=== PATIENT | male | born 1960 | race Caucasian/White ===

== ENCOUNTER 2019-07-13 12:43 | Inpatient (IN) | payer BC ==
--- NOTE | 2019-07-13 15:16 | HP ---
COWS - Scale Resting Pulse: 1= [place] 81-100 Sweatin= No chills or Flushing Restless Observation: 0= Sits Still Pupil Size: 0= Normal to Room Light Bone or Joint Aches: 1= Mild Discomfort Runny Nose/ Eye Tearin= None GI Upset > 30mins: 0= None Tremor Observation: 0= None Yawning Observation: 0= None Anxiety or Irritability: 0= None Goose Flesh Skin: 0=Smooth Skin (low COWS because just used) COWS Score: 2 CIWA Score - Admission Criteria OASAS Guidelines: Admission for Medically Managed Detox: Requires at least one of the followin. CIWA greater than 12 2. Seizures within the past 24 hours 3. Delirium tremens within the past 24 hours 4. Hallucinations within the past 24 hours 5. Acute intervention needed for co occurring medical disorder 6. Acute intervention needed for co occurring psychiatric disorder 7. Severe withdrawal that cannot be handled at a lower level of care (continued vomiting, continued diarrhea, abnormal vital signs) requiring intravenous medication and/or fluids 8. Admitting History and Physical - Admission Chief Complaint: Mr. Velasquez presents to [facility] for detox from heroin. He states he wants to "stop using because I have a beautiful family and house" History of Present Illness: Mr. Velasquez presents to [facility] for detox from heroin. He has never been admitted to [facility]. He underwent detox in 1989 at [facility]. His longes period of abstinence was [id number]. He was in a methadone program, [facility], most recent in a program on [address] in the [place]. PMH: HTN, HL PSH: none Psych: none Substance Use History: Heroin: first use: age 37 y, last use today, 4-5 bags per day. No history of overdoses. sniff, no IV. Buys street methadone cocaine: first use age 37 yo, last use today, $20./day Nicotine: first use age 13 y, last use today, 1/2 ppd Denies: alcohol, benzodiazepines History Source: Patient Limitations to Obtaining History: No Limitations - Past Medical History Psych: Yes: Addictions Admission ROS S - HPI Chief Complaint: Mr. Velasquez presents requesing admission for detox from heroin. Allergies/Adverse Reactions: Allergies Allergy/AdvReac Type Severity Reaction Status Date / Time No Known Allergies Allergy Verified 07/13/19 15:04 Exam Limitations: No Limitations - Ebola screening Have you traveled outside of the country in the last 21 days: No Have you had contact with anyone from an Ebola affected area: No Have you been sick,other than usual withdrawal symptoms: No Do you have a fever: No Patient History - Substances abused Cocaine Other (specify): Sniff Amount used: S20 Age of first use: 37 Date of last use: 07/13/19 Heroin Substance route: Inhalation Frequency: Daily Amount used: 4-5 bags Age of first use: 37 Date of last use: 07/13/19
[2019-07-13 15:51] VITALS: BMI 28.6
--- NOTE | 2019-07-13 19:32 | HP ---
COWS - Scale Resting Pulse: 1= [place] 81-100 Sweatin= Beads of Sweat on Face Restless Observation: 1= Difficult to Sit Still Pupil Size: 0= Normal to Room Light Bone or Joint Aches: 4=Acute Joint/Muscle Pain Runny Nose/ Eye Tearin= Nasal Congestion GI Upset > 30mins: 1= Stomach Cramp Tremor Observation: 0= None Yawning Observation: 2= >3x During Session Anxiety or Irritability: 1=Feels Anxious/Irritable Goose Flesh Skin: 3=Piloerection COWS Score: 17 CIWA Score - Admission Criteria OASAS Guidelines: Admission for Medically Managed Detox: Requires at least one of the followin. CIWA greater than 12 2. Seizures within the past 24 hours 3. Delirium tremens within the past 24 hours 4. Hallucinations within the past 24 hours 5. Acute intervention needed for co occurring medical disorder 6. Acute intervention needed for co occurring psychiatric disorder 7. Severe withdrawal that cannot be handled at a lower level of care (continued vomiting, continued diarrhea, abnormal vital signs) requiring intravenous medication and/or fluids 8. Admitting History and Physical - Smoking History Smoking history: Current every day smoker Have you smoked in the past 12 months: Yes Aproximately how many cigarettes per day: 10 Admission ROS [facility] Chief Complaint: seeking heroin detox Allergies/Adverse Reactions: Allergies Allergy/AdvReac Type Severity Reaction Status Date / Time No Known Allergies Allergy Verified 07/13/19 15:04 History of Present Illness: HERE FOR HEROIN DETOX. CLIENT IS SELF REFERRED. PRESENTS WITH COMPLAINTS OF WITHDRAWAL SX'S. REPORTS DAILY USE OF HEROIN. LAST USE EARLIER TODAY. DENIES, IVDU, DRUG OVERDOSE, AVH. HE ALSO ABUSES COCAINE. UTOX + MTD, HUBER, OPI, FENTANYL . CLIENT REPORTS STREET METHADONE TO SUPPLEMENT WHEN HE DOESN'T HAVE HEROIN. DENIES ANY SIGNIFICANT PERIOD OF CLEAN TIME IN THE PAST 1 YEAR. LIVES WITH , UNEMPLOYED, DENIES LEGALS. Exam Limitations: No Limitations - Ebola screening Have you traveled outside of the country in the last 21 days: No Have you had contact with anyone from an Ebola affected area: No Have you been sick,other than usual withdrawal symptoms: No Do you have a fever: No - Review of Systems Constitutional: Chills, Malaise, Night Sweats EENT: reports: Nose Congestion, Other (WATERY EYES) Respiratory: reports: Shortness of Breath (R/T ASTHMA/ INTERMITTENT), Other (HX/ O +PPD IN 1994 [place] TREAATED) Cardiac: reports: No Symptoms Reported GI: reports: Nausea, Abdominal cramping : reports: No Symptoms Reported Musculoskeletal: reports: Back Pain, Neck Pain Integumentary: reports: Sweating Neuro: reports: No Symptoms reported Endocrine: reports: No Symptoms Reported Hematology: reports: Anemia Psychiatric: reports: Agitated (IRRITABLE), Anxious, Depressed (DENIES SI) Other Systems: Reviewed and Negative Patient History - Patient Medical History Hx Anemia: No Hx Asthma: Yes Hx Chronic Obstructive Pulmonary Disease (COPD): No Hx Cancer: No Hx Cardiac Disorders: No Hx Congestive Heart Failure: No Hx Hypertension: Yes Hx Hypercholesterolemia: Yes Hx Pacemaker: No HX Cerebrovascular Accident: No Hx Seizures: No Hx Dementia: No Hx Diabetes: No Hx Gastrointestinal Disorders: Yes (HX/O GERD) Hx Liver Disease: No Hx Genitourinary Disorders: No Hx Sexually Transmitted Disorders: No Hx Renal Disease (ESRD): No Hx Thyroid Disease: No Hx Human Immunodeficiency Virus (HIV): No Hx Hepatitis C: No Hx Depression: Yes (NO MEDS) Hx Suicide Attempt: No Hx Bipolar Disorder: No Hx Schizophrenia: No Other Medical History: DENIES - Patient Surgical History Past Surgical History: No Hx Neurologic Surgery: No Hx Cataract Extraction: No Hx Cardiac Surgery: No Hx Lung Surgery: No Hx Breast Surgery: No Hx Breast Biopsy: No Hx Abdominal Surgery: No Hx Appendectomy: No Hx Cholecystectomy: No Hx Genitourinary Surgery: No Hx Section: No Hx Orthopedic Surgery: No Anesthesia Reaction: No - PPD History Previous Implant?: No Documented Results: Positive w/o proof Implanted On Prior R Admission?: No PPD to be Administered?: No - Smoking Cessation Smoking history: Current every day smoker Have you smoked in the past 12 months: Yes Aproximately how many cigarettes per day: 10 Cigars Per Day: 0 Hx Chewing Tobacco Use: No Initiated information on smoking cessation: Yes 'Breaking Loose' booklet given: 07/13/19 - Substance & Tx. History Hx Alcohol Use: Yes Hx Substance Use: Yes Substance Use Type: Cocaine, Heroin Hx Substance Use Treatment: Yes ([facility]) - Substances abused Cocaine Substance route: Inhalation Frequency: Daily Amount used: 20 DOLLARS Age of first use: 37 Date of last use: 07/13/19 Heroin Substance route: Inhalation Frequency: Daily Amount used: 10 BAGS Age of first use: 37 Date of last use: 07/13/19 (5 BAGS) Admission Physical Exam [facility] - Vital Signs Vital Signs: Vital Signs - 24 hr 07/13/19 07/13/19 15:03 16:49 Temperature 97.6 F 97.6 F Pulse Rate 91 H 91 H Respiratory 16 16 Rate Blood Pressure 137/83 137/83 - Diagnostic (1) Opioid dependence with withdrawal Current Visit: Yes Status: Acute (2) Cocaine dependence, uncomplicated Current Visit: Yes Status: Chronic (3) HTN (hypertension) Current Visit: Yes Status: Chronic Qualifiers: Hypertension type: essential hypertension Qualified Code(s): I10 - Essential (primary) hypertension (4) HLD (hyperlipidemia) Current Visit: Yes Status: Chronic (5) Asthma Current Visit: Yes Status: Chronic Qualifiers: Asthma severity: mild Asthma persistence: intermittent Asthma complication type: uncomplicated Qualified Code(s): J45.20 - Mild intermittent asthma, uncomplicated (6) Substance induced mood disorder Current Visit: Yes Status: Suspected (7) Nicotine dependence Current Visit: Yes Status: Acute Qualifiers: Nicotine product type: cigarettes Substance use status: uncomplicated Qualified Code(s): F17.210 - Nicotine dependence, cigarettes, uncomplicated (8) History of positive PPD Current Visit: Yes Status: Chronic Cleared for Admission [facility] - Detox or Rehab [facility] Level of Care: Medically Managed Detox Regimen/Protocol: Methadone Claeared for Rehab Admission: No Breathalyzer - Breathalyzer Breathalyzer: 0 Urine Drug Screen - Test Device Lot number: [id number] Expiration date: 05/03/21 - Control Is test valid?: Yes - Results Drug screen NEGATIVE: No Urine drug screen results: THC-Marijuana, HUBER-Cocaine, FEN-Fentanyl, MOP-Opiates Inpatient Rehab Admission - Rehab Decision to Admit Inpatient rehab admission?: No
[2019-07-13] MEDS ORDERED: BISMUTH SUBSALICYLATE 524 MG/30 ML UD PO PRN (19:39)
[2019-07-13] MEDS ORDERED: DICYCLOMINE HCL 10 MG CAPSULE PO PRN (19:39)
[2019-07-13] MEDS ORDERED: cloNIDine HCL 0.1 MG TABLET PO PRN (19:39)
[2019-07-13] MEDS ORDERED: P-EPHED 60MG/TRIPROLIDI 2.5MG TABLET PO PRN (19:39)
[2019-07-13] MEDS ORDERED: MAG HYDROX/AL HYDROX/SIMETH 30 ML UNIT-DOSE CUP PO PRN (19:39)
[2019-07-13] MEDS ORDERED: ONDANSETRON *ODT* 4 MG TABLET SL PRN (19:39)
[2019-07-13] MEDS ORDERED: NICOTINE POLACRILEX 2 MG GUM BUC PRN (19:39)
[2019-07-13] MEDS ORDERED: MENTHOL/PHENOL 1 EACH UD MM PRN (19:39)
[2019-07-13] MEDS ORDERED: MAGNESIUM HYDROX 2400MG/30ML ORAL SUSPENSION 30 ML CUP PO PRN (19:39)
[2019-07-13] MEDS ORDERED: ACETAMINOPHEN 325 MG TABLET (FP) PO PRN ×2 (19:39)
[2019-07-13] MEDS ORDERED: MAGNESIUM CITRATE 300 ML BOTTLE PO PRN (19:39)
[2019-07-13] MEDS ORDERED: IBUPROFEN 400 MG TABLET (FP) PO PRN (19:39)
[2019-07-13] MEDS ORDERED: guaiFENesin 200 MG/10 ML 10 ML UNIT-DOSE CUPS PO PRN (19:39)
[2019-07-13] MEDS ORDERED: METHADONE HCL 10 MG TABLET (FOR DETOX USE ONLY) PO ONE (20:45)
--- NOTE | 2019-07-13 20:52 | PN ---
BHS Progress Note Note: ABNORMAL EKG: SINUS CARYL 59 BPM BIATRIAL ENLARGEMENT LVH ST/T WAVE ABN, CONSIDER INFEROLATERAL ISCHEMIA PROLONGED QT 530/524 Vital Signs Temperature 97.6 F 07/13/19 16:49 Pulse Rate 91 H 07/13/19 16:49 Respiratory Rate 16 07/13/19 16:49 Blood Pressure 137/83 07/13/19 16:49 O2 Sat by Pulse Oximetry (%) CLIENT DENIES ANY CARDIAC SX''S TO INCLUDE SOB, C.P PMHX OF HTN, COCAINE ABUSE. P- REPEAT EKG CONT TO MONITOR CLINICALLY
[2019-07-13] MEDS: THIAMINE HCL 100 MG TABLET (FP) PO SCH (21:59)
[2019-07-13] MEDS ORDERED: ALBUTEROL SO4 HFA INHALER IH PRN (22:00)
[2019-07-13] MEDS: MELATONIN 5 MG TABLETS PO PRN (22:00)
[2019-07-14] MEDS ORDERED: METHADONE HCL 5 MG TABLET (FOR DETOX USE ONLY) ONE (09:25)
[2019-07-14] MEDS ORDERED: METHADONE HCL 10 MG TABLET (FOR DETOX USE ONLY) ONE (09:25)
[2019-07-14] MEDS ORDERED: METHADONE (DETOX) 20 MG, METHADONE (DETOX) 5 MG PO ONE (10:00)
[2019-07-14 10:06] LABS: HEMOGLOBIN 12.5 GM/dL (11.7-16.9); MCH 30.5 pg (25.7-33.7); MCHC 33.7 g/dl (32.0-35.9); MEAN CELL VOLUME 90.6 fl (80-96); MEAN PLT VOLUME 10.5 fl (7.5-11.1); PLATELET COUNT 161 K/MM3 (134-434); RBC 4.09 M/mm3 (4.00-5.60); RDW 14.3 % (11.9-15.9); WHITE BLOOD COUNT 7.5 K/mm3 (4.0-10.0)
[2019-07-14] MEDS: ASPIRIN 81 MG CHEWABLE TABLETS PO SCH (10:16)
[2019-07-14] MEDS: NICOTINE 14 MG/24 HOURS TOPICAL PATCH TD SCH (10:16)
[2019-07-14] MEDS: PRENATAL VITAMINS W/ FOLIC ACID TABLET (FP) PO SCH (10:16)
[2019-07-14] MEDS: hydrOXYzine PAMOATE 25 MG CAPSULE (FP) PO PRN (10:16)
[2019-07-14] MEDS: amLODIPine BESYLATE 10 MG TABLET (FP) PO SCH (10:16)
[2019-07-14 10:21] LABS: ALBUMIN 3.4 g/dl (3.4-5.0); ALK PHOS 74 U/L (45-117); ANION GAP 5 MMOL/L (8-16); BILIRUBIN,TOTAL 0.5 mg/dL (0.2-1); BLOOD UREA NITROGEN 18.2 mg/dL (7-18); CHLORIDE 106 mmol/L (98-107); CO2 29 mmol/L (21-32); CREATININE 0.9 mg/dL (0.55-1.3); GLUCOSE,RANDOM 110 mg/dL (74-106); SGOT/AST 14 U/L (15-37); SGPT/ALT 20 U/L (13-61); SODIUM 140 mmol/L (136-145); TOT PROT 7.2 g/dl (6.4-8.2)
--- NOTE | 2019-07-14 11:19 | PN ---
BHS COWS - Scale Resting Pulse: 0= [place] 80 or Below Sweatin= No chills or Flushing Restless Observation: 0= Sits Still Pupil Size: 1= Pupils >than Normal Bone or Joint Aches: 1= Mild Discomfort Runny Nose/ Eye Tearin= Nasal Congestion GI Upset > 30mins: 1= Stomach Cramp Tremor Observation of Outstretched Hands: 2= Slight Tremor Visible Yawning Observation: 1= 1-2x During Session Anxiety or Irritability: 2=Irritable/Anxious Goose Flesh Skin: 3=Piloerection COWS Score: 12 BHS Progress Note (SOAP) Subjective: 59 years old male admitted on 07/13/19 for opiate withdrawal sx management treating with methadone detox regiment report hypertension x 2-3 years seeing primary care "when the medication ran out " had stress test 2018 "doctor said things are ok" patient determines to stop smoking "the doctor keep telling me about" patient denies chest pain no shortness of breath denies dizziness alert oriented x 3 CN II-XII within normal range patient was in methadone program "3-4" years ago as well as short time in suboxone program patient is aware of the cardiac issue related to 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 Objective: 07/14/19 11:36 Vital Signs Temperature 97 F L 07/14/19 08:34 Pulse Rate 56 L 07/14/19 08:34 Respiratory Rate 20 07/14/19 08:34 Blood Pressure 115/79 07/14/19 08:34 O2 Sat by Pulse Oximetry (%) Laboratory Last Values WBC 7.5 K/mm3 (4.0-10.0) 07/14/19 06:00 RBC 4.09 M/mm3 (4.00-5.60) 07/14/19 06:00 Hgb 12.5 GM/dL (11.7-16.9) 07/14/19 06:00 Hct 37.0 % (35.4-49) 07/14/19 06:00 MCV 90.6 fl (80-96) 07/14/19 06:00 MCH 30.5 pg (25.7-33.7) 07/14/19 06:00 MCHC 33.7 g/dl (32.0-35.9) 07/14/19 06:00 RDW 14.3 % (11.9-15.9) 07/14/19 06:00 Plt Count 161 K/MM3 (134-434) 07/14/19 06:00 MPV 10.5 fl (7.5-11.1) 07/14/19 06:00 Sodium 140 mmol/L (136-145) 07/14/19 06:00 Potassium 4.0 mmol/L (3.5-5.1) 07/14/19 06:00 Chloride 106 mmol/L (98-107) 07/14/19 06:00 Carbon Dioxide 29 mmol/L (21-32) 07/14/19 06:00 Anion Gap 5 MMOL/L (8-16) L 07/14/19 06:00 BUN 18.2 mg/dL (7-18) H 07/14/19 06:00 Creatinine 0.9 mg/dL (0.55-1.3) 07/14/19 06:00 Est GFR (CKD-EPI)AfAm 107.22 07/14/19 06:00 Est GFR (CKD-EPI)NonAf 92.51 07/14/19 06:00 Random Glucose 110 mg/dL (74-106) H 07/14/19 06:00 Calcium 9.0 mg/dL (8.5-10.1) 07/14/19 06:00 Total Bilirubin 0.5 mg/dL (0.2-1) 07/14/19 06:00 AST 14 U/L (15-37) L 07/14/19 06:00 ALT 20 U/L (13-61) 07/14/19 06:00 Alkaline Phosphatase 74 U/L (45-117) 07/14/19 06:00 Total Protein 7.2 g/dl (6.4-8.2) 07/14/19 06:00 Albumin 3.4 g/dl (3.4-5.0) 07/14/19 06:00 lab noted Assessment: 07/14/19 11:37 opiate withdrawal Plan: methadone regiment
--- NOTE | 2019-07-14 11:41 | EKG ---
Test Reason : Blood Pressure : / mmHG Vent. Rate : 059 BPM Atrial Rate : 059 BPM P-R Int : 144 ms QRS Dur : 108 ms QT Int : 530 ms P-R-T Axes : 066 -25 -63 degrees QTc Int : 524 ms SINUS BRADYCARDIA BIATRIAL ENLARGEMENT LEFT VENTRICULAR HYPERTROPHY PROLONGED QT ABNORMAL ECG NO PREVIOUS ECGS AVAILABLE Confirmed by Michel Rice MD ([id number]) on 07/14/2019 11:41:01 AM Referred By: KRISTAN Confirmed By:Michel Rice MD
--- NOTE | 2019-07-14 11:41 | EKG ---
Test Reason : Blood Pressure : / mmHG Vent. Rate : 078 BPM Atrial Rate : 078 BPM P-R Int : 154 ms QRS Dur : 106 ms QT Int : 474 ms P-R-T Axes : 067 -21 -44 degrees QTc Int : 540 ms NORMAL SINUS RHYTHM POSSIBLE LEFT ATRIAL ENLARGEMENT LEFT VENTRICULAR HYPERTROPHY NONSPECIFIC T WAVE ABNORMALITY PROLONGED QT ABNORMAL ECG WHEN COMPARED WITH ECG OF 13-JUL-2019 20:12, T WAVE INVERSION LESS EVIDENT IN INFERIOR LEADS NONSPECIFIC T WAVE ABNORMALITY HAS REPLACED INVERTED T WAVES IN ANTEROLATERAL LEADS Confirmed by Michel Rice MD ([id number]) on 07/14/2019 11:40:42 AM Referred By: Confirmed By:Michel Rice MD
--- NOTE | 2019-07-14 12:47 | CONSULT ---
[facility] Psychiatric Consult - Data Date of interview: 07/14/19 Admission source: [facility] Identifying data: First visit at [facility] and admission to [address] [place] [address] for this 59 y/o male self-referred for detoxification treatment. DEEJAY issues : heroin, cocaine, nicotine. patient is , father of four, domiciled, unemployed and deprived of income. Substance Abuse History: Discusssed with patient in this session. Details in current [facility] report as follows : Smoking history: Current every day smoker. Have you smoked in the past 12 months: Yes. Aproximately how many cigarettes per day: 10. Cigars Per Day: 0. Hx Chewing Tobacco Use: No. Initiated information on smoking cessation: Yes. 'Breaking Loose' booklet given: . - Substance & Tx. History. Hx Alcohol Use: Yes. Hx Substance Use: Yes. Substance Use Type: Cocaine, Heroin. Hx Substance Use Treatment: Yes ([facility]). - Substances abused. Cocaine. Substance route: Inhalation. Frequency: Daily. Amount used: 20 DOLLARS. Age of first use: 37. Date of last use: 07/13. Heroin. Substance route: Inhalation. Frequency: Daily. Amount used: 10 BAGS. Age of first use: 37. Date of last use: 07/13/19 (5 BAGS) Medical History: Medical profile is remarkable for GERD, hypertension, bronchial asthma, dyslipidemia and chronic lumbar pain. No known allergies. Psychiatric History: Patient denies history of psychiatric hospitalizations, OPD care or suicide attempts. Physical/Sexual Abuse/Trauma History: Patient denies. Additional Comment: Urine drug screen results: THC-Marijuana, HUBER-Cocaine, FEN- Fentanyl, MOP-Opiates. Noted. Mental Status Exam - Mental Status Exam Alert and Oriented to: Time, Place, Person Cognitive Function: Good Patient Appearance: Unkempt, Disheveled Mood: Withdrawn Affect: Mood Congruent, Constricted Patient Behavior: Fatigued, Appropriate, Cooperative Speech Pattern: Clear, Appropriate Voice Loudness: Normal Thought Process: Intact, Goal Oriented Thought Disorder: Not Present Hallucinations: Denies Suicidal Ideation: Denies Homicidal Ideation: Denies Insight/Judgement: Poor Sleep: Well Appetite: Good Gait/Station: Normal Psychiatric Findings - Problem List ([place] 1, 2,3) (1) Opioid dependence with withdrawal Current Visit: Yes Status: Acute (2) Cocaine dependence, uncomplicated Current Visit: Yes Status: Chronic (3) Nicotine dependence Current Visit: Yes Status: Chronic Qualifiers: Nicotine product type: cigarettes Substance use status: uncomplicated Qualified Code(s): F17.210 - Nicotine dependence, cigarettes, uncomplicated (4) Substance induced mood disorder Current Visit: Yes Status: Chronic - Initial Treatment Plan Initial Treatment Plan: Psychoeducation. Sleep hygiene. Detoxification. Support. MAT services discussed with the patient. NA meetings. Observation.
[2019-07-14 18:21] LABS: URINE APPEARANCE CLOUDY; URINE BILIRUBIN NEGATIVE (NEGATIVE); URINE COLOR YELLOW; URINE GLUCOSE (UA) NEGATIVE (NEGATIVE); URINE KETONE NEGATIVE (NEGATIVE); URINE LEUK ESTERASE NEGATIVE (NEGATIVE); URINE NITRITE NEGATIVE (NEGATIVE); URINE PROTEIN NEGATIVE (NEGATIVE); URINE UROBILINOGEN 0.2 mg/dL (0.2-1.0)
[2019-07-14] MEDS: MELATONIN 5 MG TABLETS PO PRN (22:30)
[2019-07-14] MEDS: THIAMINE HCL 100 MG TABLET (FP) PO SCH (22:30)
[2019-07-15] MEDS ORDERED: METHADONE HCL 10 MG TABLET (FOR DETOX USE ONLY) PO ONE (10:00)
[2019-07-15] MEDS: NICOTINE 14 MG/24 HOURS TOPICAL PATCH TD SCH (10:18)
[2019-07-15] MEDS: amLODIPine BESYLATE 10 MG TABLET (FP) PO SCH (10:18)
[2019-07-15] MEDS: hydrOXYzine PAMOATE 25 MG CAPSULE (FP) PO PRN ×2 (10:18→17:49)
[2019-07-15] MEDS: ASPIRIN 81 MG CHEWABLE TABLETS PO SCH (10:18)
[2019-07-15] MEDS: PRENATAL VITAMINS W/ FOLIC ACID TABLET (FP) PO SCH (10:18)
[2019-07-15] MEDS: METHOCARBAMOL 500 MG TABLET PO PRN (10:18)
--- NOTE | 2019-07-15 13:17 | PN ---
S COWS - Scale Resting Pulse: 0= [place] 80 or Below Sweatin= Chills/Flushing Restless Observation: 0= Sits Still Pupil Size: 1= Pupils >than Normal Bone or Joint Aches: 1= Mild Discomfort Runny Nose/ Eye Tearin= Nasal Congestion GI Upset > 30mins: 1= Stomach Cramp Tremor Observation of Outstretched Hands: 2= Slight Tremor Visible Yawning Observation: 1= 1-2x During Session Anxiety or Irritability: 2=Irritable/Anxious Goose Flesh Skin: 0=Smooth Skin COWS Score: 10 S Progress Note (SOAP) Subjective: 59 years old male admitted on 07/13/19 for opiate withdrawal sx management treating [facility] methadone detox regiment feeling ok today ate breakfast in day room social with peers attends behavior and psychosocial therapies groups and meetings Objective: 07/15/19 13:17 Vital Signs Temperature 98.7 F 07/15/19 08:47 Pulse Rate 71 07/15/19 08:47 Respiratory Rate 18 07/15/19 08:47 Blood Pressure 128/77 07/15/19 08:47 O2 Sat by Pulse Oximetry (%) Laboratory Last Values WBC 7.5 K/mm3 (4.0-10.0) 07/14/19 06:00 RBC 4.09 M/mm3 (4.00-5.60) 07/14/19 06:00 Hgb 12.5 GM/dL (11.7-16.9) 07/14/19 06:00 Hct 37.0 % (35.4-49) 07/14/19 06:00 MCV 90.6 fl (80-96) 07/14/19 06:00 MCH 30.5 pg (25.7-33.7) 07/14/19 06:00 MCHC 33.7 g/dl (32.0-35.9) 07/14/19 06:00 RDW 14.3 % (11.9-15.9) 07/14/19 06:00 Plt Count 161 K/MM3 (134-434) 07/14/19 06:00 MPV 10.5 fl (7.5-11.1) 07/14/19 06:00 Sodium 140 mmol/L (136-145) 07/14/19 06:00 Potassium 4.0 mmol/L (3.5-5.1) 07/14/19 06:00 Chloride 106 mmol/L (98-107) 07/14/19 06:00 Carbon Dioxide 29 mmol/L (21-32) 07/14/19 06:00 Anion Gap 5 MMOL/L (8-16) L 07/14/19 06:00 BUN 18.2 mg/dL (7-18) H 07/14/19 06:00 Creatinine 0.9 mg/dL (0.55-1.3) 07/14/19 06:00 Est GFR (CKD-EPI)AfAm 107.22 07/14/19 06:00 Est GFR (CKD-EPI)NonAf 92.51 07/14/19 06:00 Random Glucose 110 mg/dL (74-106) H 07/14/19 06:00 Calcium 9.0 mg/dL (8.5-10.1) 07/14/19 06:00 Total Bilirubin 0.5 mg/dL (0.2-1) 07/14/19 06:00 AST 14 U/L (15-37) L 07/14/19 06:00 ALT 20 U/L (13-61) 07/14/19 06:00 Alkaline Phosphatase 74 U/L (45-117) 07/14/19 06:00 Creatine Kinase 100 U/L (26-308) 07/14/19 06:00 Troponin I < 0.02 ng/ml (0.00-0.05) 07/14/19 06:00 Total Protein 7.2 g/dl (6.4-8.2) 07/14/19 06:00 Albumin 3.4 g/dl (3.4-5.0) 07/14/19 06:00 Urine Color Yellow 07/14/19 12:40 Urine Appearance Cloudy 07/14/19 12:40 Urine pH 8.0 (5.0-8.0) 07/14/19 12:40 Ur Specific [place] 1.018 (1.010-1.035) 07/14/19 12:40 Urine Protein Negative (NEGATIVE) 07/14/19 12:40 Urine Glucose (UA) Negative (NEGATIVE) 07/14/19 12:40 Urine Ketones Negative (NEGATIVE) 07/14/19 12:40 Urine Blood Negative (NEGATIVE) 07/14/19 12:40 Urine Nitrite Negative (NEGATIVE) 07/14/19 12:40 Urine Bilirubin Negative (NEGATIVE) 07/14/19 12:40 Urine Urobilinogen 0.2 mg/dL (0.2-1.0) 07/14/19 12:40 Ur Leukocyte Esterase Negative (NEGATIVE) 07/14/19 12:40 RPR Titer Nonreactive (NONREACTIVE) 07/14/19 06:00 lab noted Assessment: 07/15/19 13:17 opiate withdrawal Plan: methadone regiment
[2019-07-15] MEDS: THIAMINE HCL 100 MG TABLET (FP) PO SCH (22:10)
[2019-07-15] MEDS: MELATONIN 5 MG TABLETS PO PRN (22:11)
[2019-07-16] MEDS ORDERED: METHADONE HCL 5 MG TABLET (FOR DETOX USE ONLY) ONE (09:44)
[2019-07-16] MEDS ORDERED: METHADONE HCL 10 MG TABLET (FOR DETOX USE ONLY) ONE (09:44)
[2019-07-16] MEDS ORDERED: METHADONE (DETOX) 10 MG, METHADONE (DETOX) 5 MG PO ONE (10:00)
[2019-07-16] MEDS: METHOCARBAMOL 500 MG TABLET PO PRN (10:08)
[2019-07-16] MEDS: amLODIPine BESYLATE 10 MG TABLET (FP) PO SCH (10:08)
[2019-07-16] MEDS: NICOTINE 14 MG/24 HOURS TOPICAL PATCH TD SCH (10:08)
[2019-07-16] MEDS: ASPIRIN 81 MG CHEWABLE TABLETS PO SCH (10:08)
[2019-07-16] MEDS: PRENATAL VITAMINS W/ FOLIC ACID TABLET (FP) PO SCH (10:10)
--- NOTE | 2019-07-16 11:56 | PN ---
BHS COWS - Scale Resting Pulse: 1= [place] 81-100 Sweatin= No chills or Flushing Restless Observation: 1= Difficult to Sit Still Pupil Size: 1= Pupils >than Normal Bone or Joint Aches: 1= Mild Discomfort Runny Nose/ Eye Tearin= Nasal Congestion GI Upset > 30mins: 1= Stomach Cramp Tremor Observation of Outstretched Hands: 1= Tremor [place], Not Seen Yawning Observation: 1= 1-2x During Session Anxiety or Irritability: 1=Feels Anxious/Irritable Goose Flesh Skin: 0=Smooth Skin COWS Score: 9 BHS Progress Note (SOAP) Subjective: alert,irritable,anxious,interrupted sleep,pain in the body and back Objective: 07/16/19 11:55 Vital Signs Temperature 96.5 F L 07/16/19 08:42 Pulse Rate 87 07/16/19 08:42 Respiratory Rate 18 07/16/19 08:42 Blood Pressure 144/91 07/16/19 08:42 O2 Sat by Pulse Oximetry (%) Assessment: 07/16/19 11:55 withdrawal symptom Plan: continue detox,methadone regimen
--- NOTE | 2019-07-16 12:00 | PN ---
BHS Progress Note Note: no chest pain,no sob,no dizziness
[2019-07-16] MEDS: MELATONIN 5 MG TABLETS PO PRN (22:16)
[2019-07-16] MEDS: THIAMINE HCL 100 MG TABLET (FP) PO SCH (22:16)
[2019-07-17] MEDS: METHOCARBAMOL 500 MG TABLET PO PRN ×2 (04:19→22:18)
[2019-07-17] MEDS ORDERED: METHADONE HCL 10 MG TABLET (FOR DETOX USE ONLY) PO ONE (10:00)
[2019-07-17] MEDS: NICOTINE 14 MG/24 HOURS TOPICAL PATCH TD SCH (10:37)
[2019-07-17] MEDS: ASPIRIN 81 MG CHEWABLE TABLETS PO SCH (10:37)
[2019-07-17] MEDS: PRENATAL VITAMINS W/ FOLIC ACID TABLET (FP) PO SCH (10:38)
[2019-07-17] MEDS: amLODIPine BESYLATE 10 MG TABLET (FP) PO SCH (10:38)
--- NOTE | 2019-07-17 13:43 | PN ---
BHS COWS - Scale Resting Pulse: 0= [place] 80 or Below Sweatin= No chills or Flushing Restless Observation: 0= Sits Still Pupil Size: 0= Normal to Room Light Bone or Joint Aches: 2= Severe Diffuse Aches Runny Nose/ Eye Tearin= None GI Upset > 30mins: 0= None Tremor Observation of Outstretched Hands: 0= None Yawning Observation: 0= None Anxiety or Irritability: 2=Irritable/Anxious Goose Flesh Skin: 0=Smooth Skin COWS Score: 4 BHS Progress Note (SOAP) Subjective: c/o mild withdrawal symptoms. Objective: 07/17/19 13:33 Vital Signs 07/17/19 07/17/19 06:44 09:08 Temperature 97.6 F 96.4 F L Pulse Rate 67 85 Respiratory 18 18 Rate Blood Pressure 119/70 100/68 Laboratory Last Values WBC 7.5 K/mm3 (4.0-10.0) 07/14/19 06:00 RBC 4.09 M/mm3 (4.00-5.60) 07/14/19 06:00 Hgb 12.5 GM/dL (11.7-16.9) 07/14/19 06:00 Hct 37.0 % (35.4-49) 07/14/19 06:00 MCV 90.6 fl (80-96) 07/14/19 06:00 MCH 30.5 pg (25.7-33.7) 07/14/19 06:00 MCHC 33.7 g/dl (32.0-35.9) 07/14/19 06:00 RDW 14.3 % (11.9-15.9) 07/14/19 06:00 Plt Count 161 K/MM3 (134-434) 07/14/19 06:00 MPV 10.5 fl (7.5-11.1) 07/14/19 06:00 Sodium 140 mmol/L (136-145) 07/14/19 06:00 Potassium 4.0 mmol/L (3.5-5.1) 07/14/19 06:00 Chloride 106 mmol/L (98-107) 07/14/19 06:00 Carbon Dioxide 29 mmol/L (21-32) 07/14/19 06:00 Anion Gap 5 MMOL/L (8-16) L 07/14/19 06:00 BUN 18.2 mg/dL (7-18) H 07/14/19 06:00 Creatinine 0.9 mg/dL (0.55-1.3) 07/14/19 06:00 Est GFR (CKD-EPI)AfAm 107.22 07/14/19 06:00 Est GFR (CKD-EPI)NonAf 92.51 07/14/19 06:00 Random Glucose 110 mg/dL (74-106) H 07/14/19 06:00 Calcium 9.0 mg/dL (8.5-10.1) 07/14/19 06:00 Total Bilirubin 0.5 mg/dL (0.2-1) 07/14/19 06:00 AST 14 U/L (15-37) L 07/14/19 06:00 ALT 20 U/L (13-61) 07/14/19 06:00 Alkaline Phosphatase 74 U/L (45-117) 07/14/19 06:00 Creatine Kinase 100 U/L (26-308) 07/14/19 06:00 Troponin I < 0.02 ng/ml (0.00-0.05) 07/14/19 06:00 Total Protein 7.2 g/dl (6.4-8.2) 07/14/19 06:00 Albumin 3.4 g/dl (3.4-5.0) 07/14/19 06:00 Urine Color Yellow 07/14/19 12:40 Urine Appearance Cloudy 07/14/19 12:40 Urine pH 8.0 (5.0-8.0) 07/14/19 12:40 Ur Specific [place] 1.018 (1.010-1.035) 07/14/19 12:40 Urine Protein Negative (NEGATIVE) 07/14/19 12:40 Urine Glucose (UA) Negative (NEGATIVE) 07/14/19 12:40 Urine Ketones Negative (NEGATIVE) 07/14/19 12:40 Urine Blood Negative (NEGATIVE) 07/14/19 12:40 Urine Nitrite Negative (NEGATIVE) 07/14/19 12:40 Urine Bilirubin Negative (NEGATIVE) 07/14/19 12:40 Urine Urobilinogen 0.2 mg/dL (0.2-1.0) 07/14/19 12:40 Ur Leukocyte Esterase Negative (NEGATIVE) 07/14/19 12:40 RPR Titer Nonreactive (NONREACTIVE) 07/14/19 06:00 Labs noted. Assessment: 07/17/19 13:34 AOX3, in no respiratory distress. Full ROM, ambulating in the unit. Withdrawal symptoms. For d/c tomorrow. Plan: continue detox. D/c in AM.
[2019-07-17] MEDS: THIAMINE HCL 100 MG TABLET (FP) PO SCH (22:18)
[2019-07-17] MEDS: MELATONIN 5 MG TABLETS PO PRN (22:18)
[2019-07-18] MEDS ORDERED: METHADONE HCL 5 MG TABLET (FOR DETOX USE ONLY) PO ONE (06:00)
[2019-07-18 07:11] VITALS: BP 106/59; PULSE 70; TEMP 97.4
--- NOTE | 2019-07-18 10:33 | DS ---
[facility] Detox Discharge Summary Admission Date: 07/13/19 Discharge Date: 07/18/19 - History Present History: Opioid Dependence Additional Comments: 59 years old male admitted on 07/13/19 for opiate withdrawal sx management treated with methadone detox regiment patient has completed the methadone regiment and tolerated well seen by psychiatrist no medical intervention necessary at this time alert oriented x 3 speech clearly coherently ambulating steady gait cardiac [id number] regular rate rhythm ekg indicated left atrial enlargement and left ventricular hypertrophic patient is asymptomatic no chest pain no dizziness no shortness of breath respiratory clear lungs bilaterally on auscultation skin warm and dry Pertinent Past History: time for discharge: 35 minutes - Physical Exam Results Vital Signs: Vital Signs Temperature 97.4 F L 07/18/19 07:10 Pulse Rate 70 07/18/19 07:10 Respiratory Rate 18 07/18/19 07:10 Blood Pressure 106/59 L 07/18/19 07:10 O2 Sat by Pulse Oximetry (%) Pertinent Admission Physical Exam Findings: opiate withdrawal Laboratory Last Values WBC 7.5 K/mm3 (4.0-10.0) 07/14/19 06:00 RBC 4.09 M/mm3 (4.00-5.60) 07/14/19 06:00 Hgb 12.5 GM/dL (11.7-16.9) 07/14/19 06:00 Hct 37.0 % (35.4-49) 07/14/19 06:00 MCV 90.6 fl (80-96) 07/14/19 06:00 MCH 30.5 pg (25.7-33.7) 07/14/19 06:00 MCHC 33.7 g/dl (32.0-35.9) 07/14/19 06:00 RDW 14.3 % (11.9-15.9) 07/14/19 06:00 Plt Count 161 K/MM3 (134-434) 07/14/19 06:00 MPV 10.5 fl (7.5-11.1) 07/14/19 06:00 Sodium 140 mmol/L (136-145) 07/14/19 06:00 Potassium 4.0 mmol/L (3.5-5.1) 07/14/19 06:00 Chloride 106 mmol/L (98-107) 07/14/19 06:00 Carbon Dioxide 29 mmol/L (21-32) 07/14/19 06:00 Anion Gap 5 MMOL/L (8-16) L 07/14/19 06:00 BUN 18.2 mg/dL (7-18) H 07/14/19 06:00 Creatinine 0.9 mg/dL (0.55-1.3) 07/14/19 06:00 Est GFR (CKD-EPI)AfAm 107.22 07/14/19 06:00 Est GFR (CKD-EPI)NonAf 92.51 07/14/19 06:00 Random Glucose 110 mg/dL (74-106) H 07/14/19 06:00 Calcium 9.0 mg/dL (8.5-10.1) 07/14/19 06:00 Total Bilirubin 0.5 mg/dL (0.2-1) 07/14/19 06:00 AST 14 U/L (15-37) L 07/14/19 06:00 ALT 20 U/L (13-61) 07/14/19 06:00 Alkaline Phosphatase 74 U/L (45-117) 07/14/19 06:00 Creatine Kinase 100 U/L (26-308) 07/14/19 06:00 Troponin I < 0.02 ng/ml (0.00-0.05) 07/14/19 06:00 Total Protein 7.2 g/dl (6.4-8.2) 07/14/19 06:00 Albumin 3.4 g/dl (3.4-5.0) 07/14/19 06:00 Urine Color Yellow 07/14/19 12:40 Urine Appearance Cloudy 07/14/19 12:40 Urine pH 8.0 (5.0-8.0) 07/14/19 12:40 Ur Specific [place] 1.018 (1.010-1.035) 07/14/19 12:40 Urine Protein Negative (NEGATIVE) 07/14/19 12:40 Urine Glucose (UA) Negative (NEGATIVE) 07/14/19 12:40 Urine Ketones Negative (NEGATIVE) 07/14/19 12:40 Urine Blood Negative (NEGATIVE) 07/14/19 12:40 Urine Nitrite Negative (NEGATIVE) 07/14/19 12:40 Urine Bilirubin Negative (NEGATIVE) 07/14/19 12:40 Urine Urobilinogen 0.2 mg/dL (0.2-1.0) 07/14/19 12:40 Ur Leukocyte Esterase Negative (NEGATIVE) 07/14/19 12:40 RPR Titer Nonreactive (NONREACTIVE) 07/14/19 06:00 lab noted - Treatment Hospital Course: Detox Protocol Followed, Detoxed Safely, Responded well, Discharged Condition Good, Rehab Referral Accepted Patient has Accepted a Rehab Referral to: [facility] chemical dependent rehab - Medication Discharge Medications: Ambulatory Orders Albuterol Sulfate Inhaler - [Ventolin HFA Inhaler -] 1 - 2 inh PO QID 07/13/19 Amlodipine Besylate [Norvasc -] 10 mg PO DAILY 07/13/19 Aspirin 81 mg PO DAILY 07/13/19 - Diagnosis (1) Opioid dependence with withdrawal Status: Acute (2) Asthma Status: Chronic Qualifiers: Asthma severity: mild Asthma persistence: intermittent Asthma complication type: uncomplicated Qualified Code(s): J45.20 - Mild intermittent asthma, uncomplicated (3) HLD (hyperlipidemia) Status: Chronic Qualifiers: Hyperlipidemia type: pure hypertriglyceridemia Qualified Code(s): E78.1 - Pure hyperglyceridemia (4) HTN (hypertension) Status: Chronic Qualifiers: Hypertension type: essential hypertension Qualified Code(s): I10 - Essential (primary) hypertension (5) History of positive PPD Status: Resolved (6) Nicotine dependence Status: Acute Qualifiers: Nicotine product type: cigarettes Substance use status: in withdrawal Qualified Code(s): F17.213 - Nicotine dependence, cigarettes, with withdrawal (7) Substance induced mood disorder Status: Suspected - AMA Did Patient Leave Against Medical Advice: No COWS (PN) - Opiate Withdrawal Resting Pulse: 0= MS 80 or Below Sweatin= No chills or Flushing Restless Observation: 0= Sits Still Pupil Size: 0= Normal to Room Light Bone or Joint Aches: 0= None Runny Nose/ Eye Tearin= None GI Upset > 30mins: 0= None Tremor Observation of Outstretched Hands: 0= None Yawning Observation: 0= None Anxiety or Irritability: 2=Irritable/Anxious Goose Flesh Skin: 0=Smooth Skin COWS Score: 2
== END 2019-07-18 08:43 | disposition home or self-care (01) | DRG 773 ==
LOC: YASAS 12:43 → Y3N 20:05
PROVIDERS: ADMIT Allergy & Immunology; ATTEND Allergy & Immunology
PROC: HZ2ZZZZ Detoxification Services for Substance Abuse Treatment (ICD-10-PCS; principal; 2019-07-13)
DX: F11.23 Opioid dependence with withdrawal (principal); F14.20 Cocaine dependence, uncomplicated; F17.213 Nicotine dependence, cigarettes, with withdrawal; F19.24 Other psychoactive substance dependence with psychoactive substance-induced mood disorder; I10 Essential (primary) hypertension; E78.5 Hyperlipidemia, unspecified; J45.20 Mild intermittent asthma, uncomplicated; R00.0 Tachycardia, unspecified; R94.31 Abnormal electrocardiogram [ECG] [EKG]; Z56.0 Unemployment, unspecified
CPT/HCPCS: 36415; 71046-TC-FY; 80053; 81003; 82550; 84484; 85027; 86593; 93005; 93010